=== PATIENT | female | born 1960 | race African-American/Black ===

== ENCOUNTER 2017-11-24 16:34 | Inpatient (IN) | payer OTHER ==
[~2017-11-24] VITALS: Ht 162.6 cm; Wt 92.1 kg
[2017-11-24 16:51] VITALS: BP 134/84
[2017-11-24] MEDS ORDERED: METFORMIN HCL500 MG PO (16:56)
[2017-11-24] MEDS ORDERED: FOLIC ACID1 MG PO (16:56)
[2017-11-24] MEDS ORDERED: PREDNISONE 10 M10 MG PO (16:56)
[2017-11-24 17:23] LABS: HEMATOCRIT 44.4 % (37.0-47.0); HEMOGLOBIN 13.7 gm/dL (12.0-15.0); MCH 27.5 pg (26.0-34.0); MCHC 30.9 g/dL (28.0-37.0); MCV 88.8 fL (80.0-100.0); MPV 9.4 fl. (7.2-11.1); NUCLEATED RBCS 0 /100WBC; PLATELET COUNT* 191 thou/uL (150-400); RDW-CV 15.9 % (10.5-14.5); WBC 11.6 thou/uL (4.0-11.0)
[2017-11-24 17:32] LABS: CALCIUM 10.2 mg/dL (8.5-10.1); POTASSIUM 3.6 mmol/L (3.5-5.1)
[2017-11-24 17:39] LABS: ALBUMIN 2.9 g/dL (3.4-5.0); TOTAL BILIRUBIN 1.8 mg/dL (<0.1-1.0); TOTAL PROTEIN 10.1 g/dL (6.4-8.2)
[2017-11-24 17:43] LABS: TROPONIN-I LEVEL 0.6 ng/mL (<0.06)
[2017-11-24 17:50] LABS: APTT 40.4 Seconds (25.0-31.3); INR 1.4; PROTIME 13.5 Seconds (9.20-11.50)
[2017-11-24 18:02] LABS: ABSOLUTE LYMPHOCYTES 0.7 thou/uL (0.8-5.3); ABSOLUTE MONOCYTES 0.8 thou/uL (0.0-1.2); ABSOLUTE NEUTROPHILS 10.1 thou/uL (1.6-8.1); PLATELET ESTIMATE ADEQUATE
[2017-11-24 18:10] LABS: INFLUENZA A ANTIGEN None Detected (None Detect); INFLUENZA B ANTIGEN None Detected (None Detect)
[2017-11-24 21:01] LABS: URINE BLOOD 2+ (Negative); URINE CLARITY CLEAR; URINE COLOR ORANGE; URINE GLUCOSE-RANDOM NEGATIVE (Negative); URINE KETONES 2+ (Negative); URINE LEUKOCYTES-REFLEX NEGATIVE (Negative); URINE PROTEIN 3+ (Negative); URINE SPECIFIC GRAVITY >= 1.030 (1.005-1.030)
[2017-11-24 21:04] LABS: URINE BILIRUBIN 2+ (Negative); URINE NITRITE-REFLEX POSITIVE (Negative)
[2017-11-24 21:05] LABS: ICTOTEST (BILI CONFIRMATORY) Negative (Negative)
[2017-11-24 21:10] VITALS: BP 129/82
[2017-11-24 21:12] LABS: BACTERIA-REFLEX >30 Many /HPF (None Seen); HYALINE CASTS >10 Many /LPF (None Seen); MUCUS 0-3 Light strn/LPF (None Seen)
[2017-11-24 21:13] LABS: URINE WBC-REFLEX 0-5 Rare /HPF (0-5)
[2017-11-24 21:14] LABS: SQUAMOUS 4-10 Moderate /LPF (0-3)
[2017-11-24 21:15] LABS: CRYSTALS None Seen /LPF (None Seen); URINE RBC 0-2 Rare /HPF (0-2)
[2017-11-24 21:24] VITALS: BP 108/73
[2017-11-25] VITALS: BP 124/78; BP 155/64
[2017-11-25 04:00] VITALS: BP 110/73
--- NOTE | 2017-11-25 06:22 | NUR ---
PATIENT REMAINS STABLE SINCE ADMISSION TO UNIT. PATIENT PARTIALLY PROGRESSING TOWARDS GOALS: PATIENT STATES HER PAIN IS NOW IN THE SIDES OF HER ABDOMEN RATHER THAN HER CHEST. PATIENT REMAINS ON 2L O2 NC, STILL SHORT OF BREATH WITH EXERTION BUT O2 SATS >92%. HOB ELEVATED. EMOTIONAL SUPPORT TEACHER TRACING SR/ST. PATIENT NPO FOR CARDIOLOGY. HOURLY ROUNDING OBSERVED. CALL LIGHT WITHIN REACH.
--- NOTE | 2017-11-25 08:20 | NUR ---
RECEIVED REPORT. ASSUMED CARE OF PT AT 0730. VSS. CARDIAC MONTIORING IN PLACE SR WITH ST ELEVATION NOTED SIMILAR TO EKG'S. PT DOES HAVE CARDIOLOGY CONSULT. PT CURRENTLY NPO. PT IS DROWSY/SLEEPING THIS AM. PT ON 2L PER NC WITH O2 SAT AT 98% PT DENIES ANY CHEST PAIN THIS AM. IV SALINE LOCKED. INFORMED PT OF PLAN OF CARE. PT IS UP WITH STAND BY ASSISTANCE TO BATHROOM. CALL LIGHT IS WITHIN REACH. WILL CONTINUE TO MONTIOR FOR DURAIOTN OF SHIFT.
[2017-11-25 08:31] VITALS: BP 117/74
[2017-11-25 11:31] VITALS: BP 132/86
--- NOTE | 2017-11-25 12:00 | NUR ---
MET WITH PT TO DISCUSS HOME SITUATION/DC PLANNING. PT LIVES ALONE, IS INDEPENDENT AND ACTIVE. SHE USES NO EQUIPMENT AND HASN'T HAD HH. PT STATES SHE WORKS 3 SEASONAL JOBS BUT IS UNINSURED. SHE FOLLOWS WITH DR PETER VEGA AND GETS HER MEDS AT [facility]. GAVE PT COMMUNITY RESOURCE INFO AND DISCOUNT DRUG CARD. PT PLANS TO RETURN HOME AT DC AND DENIES NEEDS. WILL FOLLOW
--- NOTE | 2017-11-25 14:59 | 2DMMODE ---
[place] [address] 2 D/M-MODE ECHOCARDIOGRAM Name: MEMO HARRISON Room: [address] IN [facility]#: [id number] Admission: 11/24/17 Attend Phys: Alonzo Cannon Discharge: Date of : 62 Date of Service: 11/25/17 1459 Report #: [id number] THIS REPORT FOR: //name// APPROVED REPORT Study performed: 11/25/2017 10:28:08 EXAM: Comprehensive 2D, Doppler, and color-flow Echocardiogram Patient Location: In-Patient Room #: [facility] Status: routine BSA: 1.97 HR: 85 bpm BP: 117/74 mmHg Rhythm: NSR Other Information Study Quality: Good Indications Dyspnea 2D Dimensions LVEF(%): 59.58 (>50%) IVSd: 15.15 (7-11mm) LVOT Diam: 23.80 (18-24mm) LVDd: 44.40 mm PWd: 12.35 (7-11mm) Ascending Ao: 30.90 (22-36mm) LVDs: 30.42 (25-40mm) Aortic Root: 32.56 mm Morales's LVEF: 59.58 % Volumes Left Atrial Volume (Systole) LA ESV Index: 37.40 mL/m2 Aortic Valve AoV Peak Jamal.: 1.19 m/s AO Peak Gr.: 5.62 mmHg LVOT Max P.75 mmHg AO Mean Gr.: 3.25 mmHg LVOT Mean P.81 mmHg LVOT Max V: 0.97 m/s AO V2 VTI: 22.77 cm LVOT Mean V: 0.61 m/s SLY (VTI): 3.77 cm2 LVOT V1 VTI: 19.30 cm Mitral Valve E/A Ratio: 1.45 [place] [address] 2 D/M-MODE ECHOCARDIOGRAM Name: MEMO HARRISON Room: [address] IN .R.#: [id number] Admission: 11/24/17 Attend Phys: Alonzo Cannon Discharge: Date of : 62 Date of Service: 11/25/17 1459 Report #: [id number] MV Decel. Time: 223.77 ms MV E Max Jamal.: 0.77 m/s MV PHT: 64.89 ms MVA (PHT): 3.39 cm2 TDI E/Lateral E': 11.00 E/Medial E': 11.00 Medial E' Jamal.: 0.07 m/s Lateral E' Jamal.: 0.07 m/s Pulmonary Valve PV Peak Jamal.: 0.86 m/s PV Peak Gr.: 2.97 mmHg Tricuspid Valve TR Peak Gr.: 18.83 mmHg RVSP: 23.00 mmHg Left Ventricle The left ventricle is normal size. There is normal LV segmental wall motion. Mild concentric left ventricular hypertrophy. Left ventricular systolic function is normal. LVEF is 55-60%. Transmitral Doppler flow pattern suggests impaired LV relaxation. Right Ventricle The right ventricle is normal size. The right ventricular systolic function is normal. Atria Left atrium is mildly dilated. The right atrium size is normal. Aortic Valve The aortic valve is normal in structure. No aortic regurgitation is present. There is no aortic valvular stenosis. Mitral Valve The mitral valve is normal in structure. Trace mitral regurgitation. No evidence of mitral valve stenosis. Tricuspid Valve The tricuspid valve is normal in structure. Trace tricuspid regurgitation. The RVSP is ____23___ mmHg. Pulmonic Valve The pulmonary valve is normal in structure. [place] [address] 2 D/M-MODE ECHOCARDIOGRAM Name: MEMO HARRISON Gómez Room: [address] IN [facility]#: [id number] Admission: 11/24/17 Attend Phys: Alonzo Cannon Discharge: Date of : 62 Date of Service: 11/25/17 1459 Report #: [id number] Great Vessels The aortic root is normal in size. IVC is normal in size and collapses with >50% inspiration Pericardium There is no pericardial effusion. <Conclusion> The left ventricle is normal size. Mild concentric left ventricular hypertrophy. Left ventricular systolic function is normal. LVEF is 55-60%. Transmitral Doppler flow pattern suggests impaired LV relaxation. Left atrium is mildly dilated. Trace mitral regurgitation. Trace tricuspid regurgitation. The RVSP is ____23___ mmHg. There is no pericardial effusion. <ELECTRONICALLY SIGNED> By: Rm Rouse MD, FACC 11/25/17 1459 1459 1459 Rm Rouse MD, FACC /INF
[2017-11-25 15:43] VITALS: BP 123/81
--- NOTE | 2017-11-25 16:36 | EKG ---
[place] [address] ELECTROCARDIOGRAM REPORT Name: MEMO HARRISON Room: [address] ADM IN M.R.#: [id number] Admission: 11/24/17 Attend Phys: Gertrudis Xie Discharge: Date of : 62 Report #: [id number] THIS REPORT FOR: //name// [facility] ED Test Date: 2017-11-24 Test Time: 17:17:04 Pat Name: MEMO HARRISON Department: Room: [facility] Gender: F Fuel Cell Designer: CODY : 1960 Requested By: Chloe Villarreal Order Number: [id number] MD: Jason Baron Measurements Intervals [place] Rate: 114 P: -16 [place]: 134 QRS: -34 QRSD: 80 T: 34 QT: 303 QTc: 418 Interpretive Statements Sinus tachycardia Abnormal R-wave progression, late transition Left ventricular hypertrophy left anterior fasicular block Anterior ST elevation, probably due to LVH Lateral leads are also involved No previous ECG available for comparison Electronically Signed On 11-25-2017 16:36:42 CREATIVE ASSISTANT by Jason Baron [email or web address] <ELECTRONICALLY SIGNED> By: Jason Baron MD, FAC 11/25/17 1636 1717 1717 Jason Baron MD, [facility] /EPI
--- NOTE | 2017-11-25 16:41 | EKG ---
[place] [address] ELECTROCARDIOGRAM REPORT Name: MEMO HARRISON Room: [address] ADM IN .R.#: [id number] Admission: 11/24/17 Attend Phys: Gertrudis Xie Discharge: Date of : 62 Report #: [id number] THIS REPORT FOR: //name// [facility] ED Test Date: 2017-11-24 Test Time: 19:17:14 Pat Name: MEMO HARRISON Department: Room: [facility] Gender: F Reinsurance Claims Analyst: ERIC : 1960 Requested By: Chloe Villarreal Order Number: [id number] MD: Jason Baron Measurements Intervals [place] Rate: 106 P: 49 [place]: 130 QRS: -36 QRSD: 87 T: 24 QT: 327 QTc: 435 Interpretive Statements Sinus tachycardia Left ventricular hypertrophy left axis deviation diffuse st elevation, consider pericarditis Baseline wander in lead(s) V1,V3,V4,V5 Electronically Signed On 11-25-2017 16:41:21 YARDING AND FOLDING MACHINE OPERATOR by Jason Baron [email or web address] <ELECTRONICALLY SIGNED> By: Jason Baron MD, [facility] 11/25/17 1641 16 16 Jason Baron MD, [facility] /EPI
--- NOTE | 2017-11-25 17:24 | NUR ---
VSS. CARDIAC MOTNIORING IN PLACE WITH NO CHANGES. PT PROGRESSING TOWARDS GOALS. PT REMAINS ON 2L. IV SALINE LOCKED. PT HAS HAD NO COMPLAINTS OF PAIN OR DISCOMFORT THIS SHIFT. PT IS UP WITH ASSISTANCE TO BATHROOM. PT INFORMED OF PLAN OF CARE. PT COMMUNICATES UNDERSTANDING CALL LIGHT IS WITHI NREACH. WILL CONTINUE TO MOTNIOR FOR DURAITON OF SHFIT.
[2017-11-25 20:00] VITALS: BP 114/74
[2017-11-26] VITALS (7 sets, daily range): BP systolic 99–121; BP diastolic 41–73
[2017-11-26 05:26] LABS: HEMATOCRIT 33.4 % (37.0-47.0); MCH 28.2 pg (26.0-34.0); MCHC 33.1 g/dL (28.0-37.0); MPV 9.4 fl. (7.2-11.1); RBC 3.93 mil/uL (4.20-5.00); RDW-CV 15.4 % (10.5-14.5); WBC 7.8 thou/uL (4.0-11.0)
[2017-11-26 05:50] LABS: CALCIUM 9.3 mg/dL (8.5-10.1); CREATININE 0.8 mg/dL (0.6-1.3); MAGNESIUM 2.2 mg/dL (1.8-2.4); POTASSIUM 3.7 mmol/L (3.5-5.1); TROPONIN-I LEVEL 0.08 ng/mL (<0.06)
[2017-11-26 05:53] LABS: HEMOGLOBIN 11.1 gm/dL (12.0-15.0)
--- NOTE | 2017-11-26 07:46 | NUR ---
PT A/OX4, SR, 2L NC FOR SOA, UP SBA, FREE FROM PAIN OVER NIGHT, MEDS/ASSESSMENT PER CHARTING, HOURLY ROUNDING IN PLACE, FALL PRECAUTIONS IN PLACE, PT USES CALL LIGHT TO REPORT NEEDS, VSS, WILL CONT TO MONITOR.
--- NOTE | 2017-11-26 19:50 | NUR ---
BEDSIDE REPORT GIVEN TO ASSISTANT ANALYST FOR CONTINUED CARES. PT REMAINS STABLE, VSS, PT CHOOSE FOR COMFORT TO WEAR NC 2L O2, STATS AT 100%. ASSESSMENTS AND DOCUMENTATION COMPLETED. HOURLY ROUNDING AND ACCU CHECKS COMPLETED. CHEST XR UNCHANGED WITH LEFT LL INFILTRATES AND ATELECTASIS. UPPER LOBES CLEAR. PT IN BEDSIDE CHAIR WATCHING TV AT SHIFT CHANGE. ALERT, TALKATIVE, PLEASANT AND COOPERATIVE.
--- NOTE | 2017-11-26 20:13 | NUR ---
ASSUMED CARES WITH BEDSIDE REPORT AT 0700. PT IN BED, BED IN LOW AND LOCKED POSITION, FALL PRECAUTIONS IN PLACE. CALL BUTTON AND PERSONAL ITEMS IN PT REACH. PT UP SBA. WIRE ROLLER TRACING NSR, PT WEARING 2L O2 NC FOR COMFORT/PRN, STATS WNL. LUNGS DISTANT WHEEZING LL BILATERALLY. NO EDEMA, SKIN INTACT, PT REFUSES SCD'S THIS SHIFT. PERRL, AFEBRILE, VSS, PT DENIES PAIN. LEFT 20 GAUGE AC PATENT, NO S/S OF INFECTION. CARDIOLOGY SIGNED OFF. ABD SOFT, NON TENDER TO PALPATION. PT A&O X4, COOPERATIVE, PLEASANT, TAKES MEDS WELL PO. REPORT TO GLUING MACHINE FEEDER FOR CONTINUED CARES. PULSES PEDIAL AND RADIAL WNL. PT PROGRESSING TOWARDS GOAL.
[2017-11-27] VITALS: BP 124/80
[2017-11-27 02:12] LABS: COMPLEMENT-C4 41 mg/dL (14-44)
--- NOTE | 2017-11-27 03:10 | NUR ---
NO ACUTE CHANGES WITH PT OVER NIGHT, PT REMAINS A/OX4, SR, 2L NC WITH STATS IN HIGH 90'S-100%, PT DOES NOT WANT TO REMOVE 02 STATING WHEN SHE GETS SOA FROM COUGHING IT MAKES HER FEEL BETTER TO HAVE IT ON, MEDS/ASSESSMENT PER CHARTING, NO C/O PAIN DURING THIS SHIFT THUS FAR, HOURLY ROUNDING/FALL PRECAUTIONS IN PLACE, VSS, WILL CONT TO MONITOR.
[2017-11-27 04:00] VITALS: BP 138/84
[2017-11-27 05:38] LABS: ABSOLUTE LYMPHOCYTES 1.1 thou/uL (0.8-5.3); ABSOLUTE MONOCYTES 0.2 thou/uL (0.0-1.2); ABSOLUTE NEUTROPHILS 2.9 thou/uL (1.6-8.1); BASOPHILS 0.2 %; HEMATOCRIT 32.6 % (37.0-47.0); HEMOGLOBIN 10.7 gm/dL (12.0-15.0); LYMPHOCYTES 27.3 %; MCH 27.4 pg (26.0-34.0); MCHC 32.7 g/dL (28.0-37.0); MCV 83.8 fL (80.0-100.0); NUCLEATED RBCS 0 /100WBC; PLATELET COUNT* 204 thou/uL (150-400); POLYS 68.5 %; RBC 3.89 mil/uL (4.20-5.00); RDW-CV 15.8 % (10.5-14.5); WBC 4.2 thou/uL (4.0-11.0)
[2017-11-27 05:45] LABS: ALBUMIN 2.2 g/dL (3.4-5.0); CALCIUM 9.7 mg/dL (8.5-10.1); CREATININE 0.7 mg/dL (0.6-1.3); TOTAL BILIRUBIN 0.2 mg/dL (<0.1-1.0); TOTAL PROTEIN 8.2 g/dL (6.4-8.2)
[2017-11-27 09:26] VITALS: BP 125/70
[2017-11-27 11:51] VITALS: BP 120/72
[2017-11-27 15:52] VITALS: BP 122/68
--- NOTE | 2017-11-27 18:30 | NUR ---
ASSUMED CARES AT BEDSIDE REPORT AT 0700. PT IN BED, BED IN LOW AND LOCKED, PT UP INDEPENDENT. CALL BUTTON AND PERSONAL ITEMS IN PT REACH. PT A&O X4, SCALE OPERATOR TRACING NSR, VSS ON RA, AFEBRILE, SKIN INTACT, NO EDEMA NOTED, NON PRODUCTIVE COUGH, SOA ON EXERTION. LEFT AC PATENT TO FLUSH AND IV ABT. IV ABT'S TOLERATED, NO AVR. HOURLY ROUNDING AND ACCU CHECKS COMPLETED. PT DENIES PAIN THIS SHIFT. CARDIOLOGY SIGNED OFF. PT MAY DISCHARGE TOMORROW TO HOME. PT STABLE, TALKATIVE, SMILING, COOPERATIVE. PT PROGRESSING TOWARDS GOAL.
[2017-11-27 20:00] VITALS: BP 134/86
--- NOTE | 2017-11-27 20:28 | NUR ---
BEDSIDE REPORT TO POTABLE WATER TREATMENT OPERATOR FOR CONTINUED CARES. PT REMAINS STABLE. VSS ON RA. PT PROGRESSING TOWARDS GOAL. HOURLY ROUNDING AND ACCU CHECKS COMPLETED. PT PRESENTLY IN BEDSIDE CHAIR WATCHING TV.
[2017-11-28] VITALS: BP 124/78
[2017-11-28 04:09] VITALS: BP 150/69
--- NOTE | 2017-11-28 05:36 | NUR ---
PT A/OX4, SR, RA WITH O2 PRN, UP AD MARY, PT REPROTED FLOATY'S IN HER VISION WHICH IMPROVED OVER NIGHT, FAXED ORDER TO PHARMACY FOR EYE WASH/TEARS, MEDS/ASESSMENT PER CHARTING, PAIN TREATED X1 FOR ACHING TO THE LEFT RIB/CHEST AREA WITH DEEP BREATHING, HOURLY ROUNDING/FALL PRECAUTIONS IN PLACE, PT USES CALL LIGHT AND ABLE TO VOICE HER NEEDS, IV D/C'ED TO [facility], HOUSE SUP PLACED NEW IV TO LFA AFTER THREE OTHER NURSES ATTEMPTED IV, VSS, WILL CONT TO MONITOR.
[2017-11-28 08:30] VITALS: BP 128/72
--- NOTE | 2017-11-28 09:00 | NUR ---
PT SITTING AT SIDE OF BED UPON ENTERING ROOM TO ASSESS VITALS AT 0830. PT DID NOT APPEAR IN DISTRESS, HOWEVER STATES SHE HAS BEEN HAVING CHEST PRESSURE AND POINTS TO AREA ON L SIDE OF CHEST. STATES PRESSURE IS 5/10 PER NUMERIC SCALE. STAT EKG OBTAINED. CONTACTED PHYSICIAN AND DIRECTOR OF CORPORATE REAL ESTATE/PHYSICIAN. EKG SHOWS NO NEW CHANGES. PHYSICIANS STATE SOURCE OF PRESSURE IS LIKELY PERICARDITIS. RECS ARE TO PROVIDE PRN PAIN MED SUCH IBUPROFEN. PRN MED GIVEN TO PT. PT CONTINUES TO APPEAR COMFORTABLE BUT STATES SHE STILL FEELS PRESSURE BUT DESCRIBES IT MORE AROUND HER SIDE THORAX BILAT. AGREEABLE TO TAKE ACETAMINEPHEN. NEEDED ITEMS AND CALL LIGHT WITHIN REACH.
--- NOTE | 2017-11-28 10:27 | EKG ---
[place] [address] ELECTROCARDIOGRAM REPORT Name: MEMO HARRISON Room: [address] ADM IN M.R.#: [id number] Admission: 11/24/17 Attend Phys: Gertrudis Xie Discharge: Date of : 62 Report #: [id number] THIS REPORT FOR: //name// [facility] Test Date: 2017-11-28 Test Time: 08:42:18 Pat Name: MEMO HARRISON Department: Room: [address] Gender: F Picker Tender Helper: Gertrudis NAVARRO : 1960 Requested By: Rm Rouse Order Number: [id number] MD: Jason Baron Measurements Intervals [place] Rate: 66 P: 41 [place]: 156 QRS: -26 QRSD: 96 T: 17 QT: 415 QTc: 435 Interpretive Statements Sinus rhythm Probable left atrial enlargement Left ventricular hypertrophy st elevation, consider pericarditie Compared to ECG 11/24/2017 19:17:14 Sinus tachycardia no longer present Electronically Signed On 11-28-2017 10:27:45 AUTOMATIC SILK SCREEN PRINTER by Jason Baron [email or web address] <ELECTRONICALLY SIGNED> By: Jason Baron MD, FAC 11/28/17 1027 0842 0842 Jason Baron MD, [facility] /EPI
[2017-11-28 12:24] VITALS: BP 124/84
[2017-11-28] MEDS ORDERED: PROTONIX40 M1 PO (15:18)
[2017-11-28] MEDS ORDERED: LEVAQUIN 500 M500 M3 PO (15:23)
[2017-11-28 15:54] VITALS: BP 117/75
[2017-11-28] MEDS ORDERED: OXYCODONE HCL 55 MG PO (16:22)
[2017-11-28] MEDS ORDERED: COLCHICINE0.6 MG PO (16:25)
[2017-11-28] MEDS ORDERED: IBUPROFEN 600600 M1 PO (16:26)
[2017-11-28 17:31] VITALS: BP 121/70
--- NOTE | 2017-11-28 17:45 | NUR ---
PT HAS COMPLETE DC ORDER. CASINO CAGE MANAGER CONTACTED, STATES PT MAY BE DC'D IF TROP LAB IS WNL. BOTH MORNING AND AFTERNOON LABS ARE WNL. DC INSTRUCTIONS AND MED LIST REVIEWED WITH PT. SCRIPTS AND EDUCATION REVIEWED. ANSWERED QUESTIONS TO PT SATISFACTION. MONITOR AND IV DC'D. PT IN POSSESSION OF ALL BELONGINGS. PT LEFT UNIT VIA WC AND NURSING STAFF. PT'S FATHER TO TRANSPORT PT TO HER HOME VIA CAR.
--- NOTE | 2017-12-01 08:34 | CON ---
[facility] [address] [place] [address] CONSULTATION Name: MEMO HARRISON Room: [address] IN M.R.#: [id number] Admission: 11/24/17 Attend Phys: Gertrudis Xie Discharge: 11/28/17 Date of : 62 Report #: [id number] THIS REPORT FOR: //name// CC: Dr. Savannah Cannon INDICATION: Chest pain and elevated troponin. HISTORY OF PRESENT ILLNESS: The patient is a 57-year-old -[place] female with history of polymyositis and lupus. She presented to the hospital with chest pain, worse with inspiration. She is not having any exacerbation with activity. She has some mild nausea, but no vomiting. She has been on steroids for her lupus since mid October. She missed her last 2 days' worth of doses due to nausea. She is not having any significant shortness of breath. She denies orthopnea or paroxysmal nocturnal dyspnea. She denies palpitations. She is without other cardiac complaint. EKG shows diffuse ST elevation with DE segment depression consistent with acute pericarditis. Her initial troponin was 0.72 suggesting possible myopericarditis . Echocardiogram has been ordered and is pending. PAST MEDICAL HISTORY: 1. Polymyositis 2. Lupus. 3. Type 2 diabetes mellitus. PAST SURGICAL HISTORY: 1. FELICE-BSO. 2. Muscle biopsy. 3. Left carpal tunnel release. FAMILY HISTORY: Noncontributory. SOCIAL HISTORY: The patient is single. She does not smoke. She does not drink alcohol. HOME MEDICATIONS: Folate 1 mg daily, metformin 500 mg daily, and prednisone 10 mg daily. ALLERGIES: STRAWBERRIES. No known medical allergies. REVIEW OF SYSTEMS: A 14-point review of systems is positive for cough, productive of clear sputum, chest discomfort as outlined above, occasional edema of lower extremities, type 2 diabetes mellitus, anemia, strawberry allergy, arthritis and connective tissue disease as outlined above, glasses without acute visual loss. Otherwise, 14-point review of systems [place] [address] CONSULTATION Name: MEMO HARRISON Room: [address]#: [id number] Admission: 11/24/17 Attend Phys: Gertrudis Xie Discharge: 11/28/17 Date of : 62 Report #: [id number] PHYSICAL EXAMINATION: VITAL SIGNS: Stable. Blood pressure 117/74, pulse 83 and regular. GENERAL: This is a pleasant -[place] female who appears to be in no distress. Mood and affect appropriate. HEENT: Normocephalic, atraumatic. Extraocular muscles are intact. Mucous membranes are moist. NECK: Shows no jugular venous distention. CHEST: Reveals clear lung sanchez without wheezes or rales. CARDIAC: Reveals a regular rhythm. I do not appreciate gallop, rub, or murmur. ABDOMEN: Reveals normal bowel sounds. The abdomen is soft and nontender. EXTREMITIES: Shows no edema. Peripheral pulses 2+ and palpable. SKIN: Dry. A 12-lead EKG shows sinus rhythm with ST elevation diffusely. There is DE interval depression. LABS: Reviewed. Sodium 134, potassium 3.6, chloride 97, bicarb 22, BUN , creatinine 1.0, serum glucose 196. Calcium 10.2. Total bili 1.8, alkaline phosphatase 70, ALT 16, albumin 2.9. Total protein 10.1. Troponin 0.60 and now 0.72. NT-proBNP 5119. Protime 13.5, INR 1.4, APTT 40.4. White blood cell count 11.6, hemoglobin 13.7, hematocrit 44.4, and platelet count 191,000. Sed rate greater than 140, C-reactive protein 456. Urinalysis shows 3+ protein. IMPRESSION AND RECOMMENDATIONS: 1. Acute myopericarditis. We will obtain echocardiogram. Follow serial troponins to evaluate peak. Initiate treatment with colchicine and nonsteroidal anti-inflammatory agents. 2. Elevated troponin secondary to #1. 3. Lupus with evidence of lupus nephritis. The patient had been on steroids at home. Res[place] [address] CONSULTATION Name: MEMO HARRISON Room: [address] IN M.R.#: [id number] Admission: 11/24/17 Attend Phys: Gertrudis Xie Discharge: 11/28/17 Date of : 62 Report #: [id number] 4. Polymyositis, the patient does follow with outside rheumatology. 5. Type 2 diabetes mellitus, per primary service. <ELECTRONICALLY SIGNED> By: Rm Rouse MD, FACC 12/01/17 0834 1018 1048[facility] Valorie Rouse MD, FACC /nt
== END 2017-11-28 19:11 | disposition home or self-care (01) | DRG 871 ==
LOC: M.ERS 16:34 → M.2W 19:04 → M.TBA-ER 19:04 → M.2W 20:11
PROVIDERS: Internal Medicine; Nurse Practitioner Family; ADMIT Internal Medicine
DX: A41.9 Sepsis, unspecified organism (principal); J18.9 Pneumonia, unspecified organism; N39.0 Urinary tract infection, site not specified; M33.20 Polymyositis, organ involvement unspecified; I30.9 Acute pericarditis, unspecified; J98.11 Atelectasis; M33.90 Dermatopolymyositis, unspecified, organ involvement unspecified; I31.9 Disease of pericardium, unspecified; E11.9 Type 2 diabetes mellitus without complications; I50.9 Heart failure, unspecified; M32.14 Glomerular disease in systemic lupus erythematosus; F41.9 Anxiety disorder, unspecified; I11.0 Hypertensive heart disease with heart failure; Z90.710 Acquired absence of both cervix and uterus; Z90.722 Acquired absence of ovaries, bilateral; Z79.84 Long term (current) use of oral hypoglycemic drugs; Z79.899 Other long term (current) drug therapy; Z91.018 Allergy to other foods; Z28.21 Immunization not carried out because of patient refusal

== ENCOUNTER → 2020-04-06 | Outpatient (CLI) | payer OTHER ==
[~2020-04-06] MED LIST: COLCHICINE0.6 MG PO; FOLIC ACID1 MG PO; HYDROCODONE-AP1 EAC6 PO; IBUPROFEN 600600 M1 PO; LEVAQUIN 500 M500 M3 PO; MEDROLDOSEPACK PO; METFORMIN HCL500 MG PO; METHOTREXATE 22.5 MG PO; MOTION SICKNESS25 M1 PO; OXYCODONE HCL 55 MG PO; PREDNISONE 10 M10 MG PO; PROTONIX40 M1 PO
== END ==
LOC: M.RAD 10:42
DX: M25.871 Other specified joint disorders, right ankle and foot (principal)

== ENCOUNTER 2020-09-25 15:31 | Emergency (ER) | payer OTHER ==
[~2020-09-25] VITALS: Ht 160 cm; Wt 77.1 kg
[2020-09-25 16:21] LABS: URINE BLOOD NEGATIVE (Negative); URINE CLARITY CLEAR; URINE COLOR DARK YELLOW; URINE GLUCOSE-RANDOM TRACE (Negative); URINE KETONES 2+ (Negative); URINE LEUKOCYTES-REFLEX TRACE (Negative); URINE NITRITE-REFLEX NEGATIVE (Negative); URINE PROTEIN 2+ (Negative); URINE UROBILINOGEN >= 8.0 E.U./dl (0.2-1.0)
[2020-09-25 16:26] LABS: URINE BILIRUBIN 2+ (Negative)
[2020-09-25 16:28] LABS: ICTOTEST (BILI CONFIRMATORY) Positive (Negative)
[2020-09-25 16:30] LABS: BACTERIA-REFLEX >30 Many /HPF (None Seen); HYALINE CASTS 4-10 Moderate /LPF (None Seen); MUCUS >6 Heavy strn/LPF (None Seen); SQUAMOUS 4-10 Moderate /LPF (0-3); URINE RBC 0-2 Rare /HPF (0-2)
[2020-09-25 16:31] LABS: CRYSTALS None Seen /LPF (None Seen)
[2020-09-25 16:33] LABS: ABSOLUTE EOSINOPHILS 0.3 thou/uL (0.0-0.7); ABSOLUTE LYMPHOCYTES 0.8 thou/uL (0.8-5.3); ABSOLUTE MONOCYTES 0.5 thou/uL (0.0-1.2); BASOPHILS 0.3 %; EOSINOPHILS 4.8 %; HEMATOCRIT 39.2 % (37.0-47.0); LYMPHOCYTES 12.6 %; MCH 27.6 pg (26.0-34.0); MCHC 33.1 g/dL (28.0-37.0); MCV 83.3 fL (80.0-100.0); MONOCYTES 7.8 %; MPV 8.8 fl. (7.2-11.1); NUCLEATED RBCS 0 /100WBC; PLATELET COUNT* 235 thou/uL (150-400); POLYS 74.5 %; RBC 4.71 mil/uL (4.20-5.00); RDW-CV 13.1 % (10.5-14.5); WBC 6.7 thou/uL (4.0-11.0)
[2020-09-25 16:38] LABS: CALCIUM 9.7 mg/dL (8.5-10.1); CREATININE 0.8 mg/dL (0.6-1.3); POTASSIUM 3.4 mmol/L (3.5-5.1)
[2020-09-25 16:43] LABS: ALBUMIN 2.8 g/dL (3.4-5.0); TOTAL BILIRUBIN 0.7 mg/dL (<0.1-1.0); TOTAL PROTEIN 9.6 g/dL (6.4-8.2)
[2020-09-25] MEDS ORDERED: KEFLEX500 M1 PO (17:07)
[2020-09-25] MEDS ORDERED: METFORMIN HCL500 MG PO (17:15)
[2020-09-25 17:24] VITALS: BP 113/95
[2020-09-25] MEDS ORDERED: APAP W/CODEINE1 TA2 PO (17:45)
== END 2020-09-25 17:25 | disposition home or self-care (01) ==
LOC: M.ERS 15:31
PROVIDERS: Physician Assistant
DX: R20.0 Anesthesia of skin (principal); R20.2 Paresthesia of skin; N39.0 Urinary tract infection, site not specified; I10 Essential (primary) hypertension; E11.9 Type 2 diabetes mellitus without complications; Z90.711 Acquired absence of uterus with remaining cervical stump; Z79.899 Other long term (current) drug therapy

== ENCOUNTER 2020-10-01 20:25 | Inpatient (IN) | payer MEDICAID ==
[~2020-10-01] VITALS: Ht 160 cm; Wt 87.3 kg
--- NOTE | ~2020-10-01 | CON ---
[facility] [address] [place] [address] CONSULTATION Name: MEMO HARRISON Room: [address] IN M.R.#: [id number] Admission: 10/01/20 Attend Phys: Grazyna Brown MD Discharge: Date of : 62 Report #: [id number] THIS REPORT FOR: //name// cc: Andria Pena MD, Lin W. MD ~ DATE OF SERVICE: 10/02/2020 HISTORY OF PRESENT ILLNESS: This is a 60-year-old female patient who was evaluated by me for a pretty complicated history. I talked to the patient. I reviewed the patient's record and subsequently called Dr. Fu who is the admitting physician to discuss the patient with him. This patient is admitted with generalized weakness. Weakness involves upper and lower extremities. It started about 9 or 10 days ago around last weekend. It started spontaneously without any trauma. Complicated history is that this patient has what has been diagnosed as either polymyositis or dermatomyositis. She has been to a bowl attendant and she has been on immune suppressing medications. I do not know what testing was done to establish the diagnosis of polymyositis or dermatomyositis. I do not know whether a muscle biopsy was done or whether EMG was done of whether it was a clinical diagnosis. In any event, it is a chronic process and presently her CPK is normal. REVIEW OF SYSTEMS: A 14-point review of system is carried out and it is pretty extensive. She carries a diagnosis of either polymyositis or dermatomyositis. Records indicate she has a history of congestive heart failure. Now, she has this tingling and numbness and weakness in all 4 extremities, which is about 9-10 days' duration. During that time multiple diagnoses has been put on her. Some of them has been confirm and some of them have been tentative. The diagnosis of urinary tract infection has been considered in this patient and that diagnosis, looks like was made outside. She did have a urinalysis here and that showed only rare WBC and her nitrite is negative, I am not sure how established the diagnosis of urinary tract infection while, but she does have influenza. That is per record. Her swab is positive for influenza type B. One of the records says that she has an abnormal EKG. Here it indicate probable left atrial enlargement and nonspecific ST segment changes according to the record. She has been admitted here and in 2018, she had a 2-D echocardiogram and that indicated a normal ejection fraction. She was admitted again in 2019 here and that was related to some knee issues. It might be mentioned that her CPK was checked in 2018, also when she was here and that indicated a CPK of 172. Even that was normal. This was a relevant 14-point review of system. PAST MEDICAL HISTORY: She carries a diagnosis [place] [address] CONSULTATION Name: MEMO HARRISON Room: [address] IN ..#: [id number] Admission: 10/01/20 Attend Phys: Grazyna Brown MD Discharge: Date of : 62 Report #: [id number] FAMILY HISTORY: Unremarkable. SOCIAL HISTORY: The patient was with her father when the patient was seen and according to records, she does not smoke or drink alcohol. PHYSICAL EXAMINATION: Indicate that she is alert. She is responsive. She can follow simple commands. Her speech looks intact. On the cranial nerve examination, sometime it looks like she may have left-sided ptosis, but it is difficult to confirm. She moves her eyes in all directions and she does not appear to have any visual field deficit and cranial nerve examination mostly looks unremarkable. She is severely weak in all 4 extremities. The weakness appeared to be symmetrical and present in all 4 extremities. She can move against gravity, most of the time, but movements are very weak. Her position sense is intact on both sides. Her touch is intact on both sides. Her plantars are mute on both sides. Reflexes in the upper extremities I think is present in the lower extremities I am not sure. When I do the cerebellar sign, she does appear to be little unstable, but it is difficult to tell whether that instability is there because of weakness or because of something else. There is no meningeal sign. There does not appear to be any marked edema. She is thinly built individual. Her hearing and vision looks adequate. Her blood pressure is 117/72, respiration is 16, pulse is 61, and temperature is 94.5. LABORATORY DATA: Indicate that her sed rate is still 94. This is in spite of the fact that the patient has been on steroids. Her potassium is only 3.2. She does have increased blood sugar, but ALT, CPK they were all normal. She did have a B12, which was normal. I did not see a TSH. She does have low albumin at 1.8, but her total protein is 8, which is normal and at one time was 9.5 and 9.6. I do not see any protein electrophoresis here. IMPRESSION: This is a highly complicated case. This is not a proper hospital for her because we do not have any bowl attendant here. That portion was discussed with the patient by Dr. Fu and I reinforced the same thing. As I understand, she wanted to stay here and the patient has no insurance and most of the Hospitals are full and it will be difficult to transfer because she wants to go to mainly [facility], which is usually full with the COVID. It will be almost impossible to transfer it, but I think Dr. Fu is going to try that. If she stays here, we need to workup. We will do a protein electrophoresis and immunofixation electrophoresis to see if any monoclonal body can be identified and see what the pattern is. The whole thing points towards the collagen vascular disorder with the patient having a high sed rate, and high CRP. The other differential, we need to consider is the possibility of Guillain-Tracy syndrome. We need to evaluate that further. In [place] [address] CONSULTATION Name: MEMO HARRISON Room: [address] IN .R.#: [id number] Admission: 10/01/20 Attend Phys: Grazyna Brown MD Discharge: Date of : 62 Report #: [id number] approved by cook chief before it can be done. I do not believe it will be approved in her case because of these kind of symptoms. Dr. Fu is going to try that. If MRI cannot be done, then I will order a CT scan today and we will proceed with a spinal tap if there is no contraindication for doing a spinal tap on CT. 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 The problem with the treatment is gammaglobulin is already high, you hate to give her gammaglobulin because it will increase the osmolality and increased the chances of having a stroke. We may have to consider plasmapheresis. The other thing which can be done is an EMG, but EMG will not distinguish between neuropathy of any other etiology for Guillain-Tracy syndrome until we find a demyelinating lesion. We do not have a machine here for EMG. It is a very difficult situation and it was discussed with Dr. Fu and the patient in detail. Presently, I will wait for protein electrophoresis, CT scan and then try to do a spinal tap in this patient after discussing the situation again with her tomorrow. Thank you very much for this referral. By: [id number] Larsen MD /nt
[~2020-10-01 20:25] MED LIST changes: +APAP W/CODEINE1 TA2 PO; +KEFLEX500 M1 PO
[2020-10-01 20:27] VITALS: BP 134/75
[2020-10-01] MEDS ORDERED: FOLIC ACID1 MG PO (20:45)
[2020-10-01 21:00] LABS: INFLUENZA A ANTIGEN Negative (Negative)
[2020-10-01 21:03] LABS: URINE BLOOD NEGATIVE (Negative); URINE CLARITY CLEAR; URINE COLOR YELLOW; URINE GLUCOSE-RANDOM NEGATIVE (Negative); URINE KETONES NEGATIVE (Negative); URINE LEUKOCYTES-REFLEX NEGATIVE (Negative); URINE NITRITE-REFLEX NEGATIVE (Negative); URINE PROTEIN 2+ (Negative); URINE SPECIFIC GRAVITY 1.025 (1.005-1.030)
[2020-10-01 21:07] LABS: ICTOTEST (BILI CONFIRMATORY) Negative (Negative); URINE BILIRUBIN 1+ (Negative)
[2020-10-01 21:08] LABS: SQUAMOUS 4-10 Moderate /LPF (0-3)
[2020-10-01 21:09] LABS: URINE WBC-REFLEX 0-5 Rare /HPF (0-5)
[2020-10-01 21:10] LABS: BACTERIA-REFLEX None Seen /HPF (None Seen); CASTS None Seen /LPF (None Seen); CRYSTALS None Seen /LPF (None Seen); MUCUS >6 Heavy strn/LPF (None Seen); URINE RBC None Seen /HPF (0-2)
[2020-10-01 21:12] LABS: HEMATOCRIT 40.1 % (37.0-47.0); HEMOGLOBIN 13.2 gm/dL (12.0-15.0); MCV 84.9 fL (80.0-100.0); MPV 8.6 fl. (7.2-11.1); NUCLEATED RBCS 0 /100WBC; PLATELET COUNT* 311 thou/uL (150-400); RBC 4.73 mil/uL (4.20-5.00); RDW-CV 13.4 % (10.5-14.5); WBC 9.9 thou/uL (4.0-11.0)
[2020-10-01 21:22] LABS: CALCIUM 9.5 mg/dL (8.5-10.1); CREATININE 0.9 mg/dL (0.6-1.3); POTASSIUM 3.6 mmol/L (3.5-5.1)
[2020-10-01 21:26] LABS: ABSOLUTE EOSINOPHILS 0.2 thou/uL (0.0-0.7); ABSOLUTE LYMPHOCYTES 0.4 thou/uL (0.8-5.3); ABSOLUTE MONOCYTES 0.5 thou/uL (0.0-1.2); ABSOLUTE NEUTROPHILS 8.8 thou/uL (1.6-8.1); PLATELET ESTIMATE ADEQUATE
[2020-10-01 21:32] LABS: ALBUMIN 2.3 g/dL (3.4-5.0); MAGNESIUM 2.3 mg/dL (1.8-2.4); TOTAL PROTEIN 9.5 g/dL (6.4-8.2)
[2020-10-01 21:41] LABS: INR 1.2; PROTIME 13.1 Seconds (9.20-11.50)
[2020-10-01 23:25] VITALS: BP 107/58
[2020-10-02 00:16] VITALS: BP 103/66
[2020-10-02] MEDS ORDERED: NEURONTIN 300M300 M2 PO (00:41)
[2020-10-02 05:43] VITALS: BP 103/63
[2020-10-02 08:00] VITALS: BP 117/72
--- NOTE | 2020-10-02 09:03 | EKG ---
[place] [address] ELECTROCARDIOGRAM REPORT Name: MEMO HARRISON Room: [address] ADM IN .R.#: [id number] Admission: 10/01/20 Attend Phys: Grazyna Brown, Discharge: Date of : 62 Date of Service: 10/01/202032 Report #: [id number] THIS REPORT FOR: //name// [facility] ED Test Date: 2020-10-01 Test Time: 20:33:46 Pat Name: MEMO HARRISON Department: Room: [facility] Gender: F Implementation Consultant: [place] : 1960 Requested By: Negra Tyson Order Number: [id number] MD: Jason Baron Measurements Intervals [place] Rate: 136 P: 50 [place]: 137 QRS: -48 QRSD: 89 T: 69 QT: 290 QTc: 437 Interpretive Statements Sinus tachycardia nonspecific st segment changes Probable left atrial enlargement Left ventricular hypertrophy Lateral leads are also involved Baseline wander in lead(s) V1 Compared to ECG 02/10/2019 12:18:49 Sinus rhythm no longer present Electronically Signed On 10-02-2020 9:03:33 MLT by Jason Baron [email or web address] <ELECTRONICALLY SIGNED> By: Jason Baron MD, FACC 10/02/20902 32 32 Jason Baron MD, FAC /EPI
[2020-10-02 10:42] LABS: ALBUMIN 1.8 g/dL (3.4-5.0); CALCIUM 8.4 mg/dL (8.5-10.1); CREATININE 0.6 mg/dL (0.6-1.3); POTASSIUM 3.2 mmol/L (3.5-5.1); TOTAL BILIRUBIN 0.9 mg/dL (<0.1-1.0)
--- NOTE | 2020-10-02 11:46 | EKG ---
[place] [address] ELECTROCARDIOGRAM REPORT Name: MEMO HARRISON Room: [address] ADM IN .R.#: [id number] Admission: 10/01/20 Attend Phys: Grazyna Brown, Discharge: Date of : 62 Date of Service: 10/01/20 2236 Report #: [id number] THIS REPORT FOR: //name// [facility] ED Test Date: 2020-10-01 Test Time: 22:36:31 Pat Name: MEMO HARRISON Department: Room: [address] Gender: F Tension Worker: [place] : 1960 Requested By: Negra Tyson Order Number: [id number] Yris MD: Jason Baron Measurements Intervals [place] Rate: 112 P: 46 [place]: 166 QRS: -40 QRSD: 94 T: 58 QT: 347 QTc: 474 Interpretive Statements Sinus tachycardia Probable left atrial enlargement Left ventricular hypertrophy left anterior fasicular block baseline artifact Compared to ECG 10/01/2020 20:33:46 rate has slowed Electronically Signed On 10-02-2020 11:45:55 [employer] by Jason Baron [email or web address] <ELECTRONICALLY SIGNED> By: Jason Baron MD, [facility] 10/02/20 1145 35 35 Jason Baron MD, [facility] /EPI
--- NOTE | 2020-10-02 11:47 | EKG ---
[place] [address] ELECTROCARDIOGRAM REPORT Name: MEMO HARRISON Room: [address] ADM IN M.R.#: [id number] Admission: 10/01/20 Attend Phys: Grazyna Brown, Discharge: Date of : 62 Date of Service: 10/01/20 2244 Report #: [id number] THIS REPORT FOR: //name// [facility] ED Test Date: 2020-10-01 Test Time: 22:44:06 Pat Name: MEMO HARRISON Department: Room: [address] Gender: F Channel Process Supervisor: LORIE : 1960 Requested By: Negra Tyson Order Number: [id number] Reading MD: Jason Baron Measurements Intervals [place] Rate: 109 P: 23 [place]: 165 QRS: -38 QRSD: 96 T: 53 QT: 362 QTc: 488 Interpretive Statements Sinus tachycardia Left ventricular hypertrophy left axis nonspecific st segment changes Compared to ECG 10/01/2020 22:36:31 No significant changes Electronically Signed On 10-02-2020 11:46:52 BROOM WORKER by Jason Baron [email or web address] <ELECTRONICALLY SIGNED> By: Jason Baron MD, FACC 10/02/20 1146 2244 2244 Jason Baron MD, [facility] /EPI
[2020-10-02 15:58] VITALS: BP 129/85
[2020-10-02 20:00] VITALS: BP 127/68
[2020-10-02 22:06] LABS: COMPLEMENT-C4 27 mg/dL (12-38)
[2020-10-03 00:23] VITALS: BP 125/83
[2020-10-03 02:06] LABS: IgA 372 mg/dL (87-352); IgG 2836 mg/dL (586-1602); IgM 95 mg/dL (26-217)
[2020-10-03 02:06] LABS: GLYCOHEMOGLOBIN (HGB A1C) 5.2 % (4.8-5.6)
[2020-10-03 04:17] VITALS: BP 141/70
[2020-10-03 04:37] LABS: ABSOLUTE LYMPHOCYTES 0.9 thou/uL (0.8-5.3); ABSOLUTE MONOCYTES 0.4 thou/uL (0.0-1.2); ABSOLUTE NEUTROPHILS 5.7 thou/uL (1.6-8.1); BASOPHILS 0.1 %; HEMATOCRIT 34.1 % (37.0-47.0); HEMOGLOBIN 11.3 gm/dL (12.0-15.0); LYMPHOCYTES 13.4 %; MCH 27.5 pg (26.0-34.0); MCHC 33.1 g/dL (28.0-37.0); MONOCYTES 5.2 %; MPV 9.2 fl. (7.2-11.1); NUCLEATED RBCS 0 /100WBC; POLYS 81.3 %; RBC 4.11 mil/uL (4.20-5.00); RDW-CV 13.2 % (10.5-14.5); WBC 7.1 thou/uL (4.0-11.0)
[2020-10-03 04:42] LABS: PLATELET COUNT* 215 thou/uL (150-400)
[2020-10-03 05:20] LABS: CALCIUM 8.5 mg/dL (8.5-10.1); CREATININE 0.6 mg/dL (0.6-1.3); POTASSIUM 3.3 mmol/L (3.5-5.1)
[2020-10-03 06:01] LABS: CHOLESTEROL 105 mg/dL (<200); HDL CHOLESTEROL 14 mg/dL (>40); LDL CHOLESTEROL 71 mg/dL (<100); SERUM ASSESSMENT Clear; TC:HDL 7.5 Ratio (Not establshd); TRIGLYCERIDE 101 mg/dL (<150); VLDL 20 mg/dL (<40)
[2020-10-03 08:00] VITALS: BP 139/93
[2020-10-03 11:13] VITALS: BP 130/83
[2020-10-03 12:49] LABS: CALCIUM 9.2 mg/dL (8.5-10.1); CREATININE 0.6 mg/dL (0.6-1.3); POTASSIUM 3.7 mmol/L (3.5-5.1)
[2020-10-03 12:52] LABS: MAGNESIUM 2.6 mg/dL (1.8-2.4); PHOSPHORUS* 2.3 mg/dL (2.5-4.9)
[2020-10-03 13:13] LABS: ANA INTERPRETATION Positive (Negative)
[2020-10-03 19:30] VITALS: BP 134/77
[2020-10-04 00:02] VITALS: BP 138/81
[2020-10-04 04:00] VITALS: BP 130/74
[2020-10-04 07:35] VITALS: BP 139/86
[2020-10-04 12:13] VITALS: BP 142/80
[2020-10-04 15:04] VITALS: BP 151/79
[2020-10-04 20:00] VITALS: BP 135/66
[2020-10-04 21:05] LABS: GLOBULIN TOTAL 5.4 g/dL (2.2-3.9); M-SPIKE Not Observed g/dL (Not Observed)
[2020-10-05] VITALS: BP 160/84
[2020-10-05 04:00] VITALS: BP 151/82
[2020-10-05 04:34] LABS: ABSOLUTE LYMPHOCYTES 0.6 thou/uL (0.8-5.3); ABSOLUTE MONOCYTES 0.4 thou/uL (0.0-1.2); ABSOLUTE NEUTROPHILS 4.7 thou/uL (1.6-8.1); BASOPHILS 0.1 %; EOSINOPHILS 0.2 %; HEMATOCRIT 33.1 % (37.0-47.0); HEMOGLOBIN 10.7 gm/dL (12.0-15.0); MCH 27.2 pg (26.0-34.0); MCHC 32.4 g/dL (28.0-37.0); MCV 84.1 fL (80.0-100.0); MONOCYTES 6.3 %; MPV 8.7 fl. (7.2-11.1); NUCLEATED RBCS 0 /100WBC; PLATELET COUNT* 272 thou/uL (150-400); POLYS 82.4 %; RBC 3.94 mil/uL (4.20-5.00); RDW-CV 13.2 % (10.5-14.5); WBC 5.7 thou/uL (4.0-11.0)
[2020-10-05 05:03] LABS: ALBUMIN 1.8 g/dL (3.4-5.0); CALCIUM 8.1 mg/dL (8.5-10.1); CREATININE 0.6 mg/dL (0.6-1.3); POTASSIUM 4.1 mmol/L (3.5-5.1); TOTAL BILIRUBIN 0.2 mg/dL (<0.1-1.0); TOTAL PROTEIN 7.2 g/dL (6.4-8.2)
[2020-10-05 08:30] VITALS: BP 139/76
[2020-10-05 11:00] VITALS: BP 163/82
--- NOTE | 2020-10-05 16:36 | 2DMMODE ---
[place] [address] 2 D/M-MODE ECHOCARDIOGRAM Name: MEMO HARRISON Room: [address] IN [facility]#: [id number] Admission: 10/01/20 Attend Phys: Grazyna Brown, Discharge: Date of : 62 Date of Service: 10/05/20 1635 Report #: [id number] THIS REPORT FOR: cc: Andria Pena MD, Lin W. MD Liston, Michael J. MD [facility] ~ APPROVED REPORT Study performed: 10/05/2020 15:29:21 EXAM: Comprehensive 2D, Doppler, and color-flow Echocardiogram Patient Location: In-Patient Room #: [facility] Status: routine BSA: 1.80 HR: 72 bpm BP: 163/82 mmHg Rhythm: NSR Other Information Study Quality: Good Indications CVA/TIA Echo Enhancing Agent Indication: Rule out Shunt Agent(s) / Amount(s) Used: Agitated Saline 10 cc 2D Dimensions IVSd: 11.25 (7-11mm) LVOT Diam: 23.18 (18-24mm) LVDd: 51.16 mm PWd: 10.21 (7-11mm) Ascending Ao: 31.06 (22-36mm) LVDs: 25.65 (25-40mm) Aortic Root: 32.02 mm Volumes Left Atrial Volume (Systole) LA ESV Index: 33.40 mL/m2 Aortic Valve AoV Peak Jamal.: 1.61 m/s AO Peak Gr.: 10.41 mmHg LVOT Max P.93 mmHg AO Mean Gr.: 5.00 mmHg LVOT Mean P.63 [place] [address] 2 D/M-MODE ECHOCARDIOGRAM Name: MEMO HARRISON Room: [address] IN .R.#: [id number] Admission: 10/01/20 Attend Phys: Grazyna Brown, Discharge: Date of : 62 Date of Service: 10/05/20 1635 Report #: [id number] LVOT Max V: 1.49 m/s AO V2 VTI: 27.77 cm LVOT Mean V: 0.86 m/s SLY (VTI): 4.07 cm2 LVOT V1 VTI: 26.81 cm Mitral Valve E/A Ratio: 1.30 MV Decel. Time: 186.47 ms MV E Max Jamal.: 0.89 m/s MV PHT: 54.08 ms MVA (PHT): 4.07 cm2 TDI E/Lateral E': 5.93 E/Medial E': 9.89 Medial E' Jamal.: 0.09 m/s Lateral E' Jamal.: 0.15 m/s Pulmonary Valve PV Peak Jamal.: 0.97 m/s PV Peak Gr.: 3.80 mmHg Tricuspid Valve RAP Estimate: 5.00 mmHg TR Peak Gr.: 17.61 mmHg RVSP: 22.00 mmHg PA Pressure: 22.00 mmHg Left Ventricle The left ventricle is normal size. There is normal LV segmental wall motion. There is normal left ventricular wall thickness. Left ventricular systolic function is normal. LVEF is 65-70%. The left ventricular diastolic function is normal. Right Ventricle The right ventricle is normal size. The right ventricular systolic function is normal. Atria The left atrium size is normal. Injection of bubbles documented an interatrial shunt consistent with PFO. The right atrium size is normal. Aortic Valve The aortic valve is normal in structure. No aortic regurgitation is present. There is no aortic valvular stenosis. Mitral Valve The mitral valve is normal in structure. Mild mitral regurgitation. No evidence [place] [address] 2 D/M-MODE ECHOCARDIOGRAM Name: MEMO HARRISON Gómez Room: [address] IN [facility]#: [id number] Admission: 10/01/20 Attend Phys: Grazyna Brown, Discharge: Date of : 62 Date of Service: 10/05/20 1635 Report #: [id number] Tricuspid Valve The tricuspid valve is normal in structure. Mild tricuspid regurgitation. No pulmonary hypertension. Pulmonic Valve The pulmonary valve is normal in structure. There is no pulmonic valvular regurgitation. Great Vessels The aortic root is normal in size. IVC is normal in size and collapses >50% with inspiration. Pericardium There is no pericardial effusion. <Conclusion> The left ventricle is normal size. There is normal left ventricular wall thickness. Left ventricular systolic function is normal. LVEF is 65-70%. The left ventricular diastolic function is normal. Injection of bubbles documented an interatrial shunt consistent with PFO. Mild mitral regurgitation. Mild tricuspid regurgitation. No pulmonary hypertension. IVC is normal in size and collapses >50% with inspiration. <ELECTRONICALLY SIGNED> By: Rm Rouse MD, FACC 10/05/20 1635 1635 1635 Rm Rouse MD, FACC /INF
--- NOTE | 2020-10-05 16:40 | EKG ---
[place] [address] ELECTROCARDIOGRAM REPORT Name: CHRISTYMEMO Room: [address] ADM IN M.R.#: [id number] Admission: 10/01/20 Attend Phys: Grazyna Brown, Discharge: Date of : 62 Date of Service: 10/05/20 0441 Report #: [id number] THIS REPORT FOR: //name// [facility] Test Date: 2020-10-05 Test Time: 04:41:12 Pat Name: MEMO HARRISON Department: Room: [address] Gender: F Administrative Support Assistant: ANWANKWO : 1960 Requested By: Grazyna Brown Order Number: [id number] Yris MD: Ayad Johnston Measurements Intervals [place] Rate: 73 P: 48 [place]: 163 QRS: -24 QRSD: 101 T: 4 QT: 408 QTc: 450 Interpretive Statements Sinus rhythm Minimal ST elevation high lateral leads Compared to ECG 10/01/2020 22:44:06 ST (T wave) deviation now present Sinus tachycardia no longer present Electronically Signed On 10-05-2020 16:40:33 MEDICAL INSURANCE CLAIMS SPECIALIST by Ayad Johnston [email or web address] <ELECTRONICALLY SIGNED> By: Ayad Johnston MD, FACC 10/05/20 1640 044 044 Ayad Johnston MD, FACC /EPI
[2020-10-05 20:10] VITALS: BP 167/85
[2020-10-05 23:59] VITALS: BP 149/78
[2020-10-06 05:16] VITALS: BP 147/86
[2020-10-06 08:00] VITALS: BP 168/86
[2020-10-06 09:22] LABS: HEMOGLOBIN 10.4 gm/dL (12.0-15.0); MCH 27.2 pg (26.0-34.0); MCHC 32.4 g/dL (28.0-37.0); NUCLEATED RBCS 0 /100WBC; PLATELET COUNT* 261 thou/uL (150-400); RBC 3.82 mil/uL (4.20-5.00); RDW-CV 13.4 % (10.5-14.5); WBC 6.4 thou/uL (4.0-11.0)
[2020-10-06 09:33] LABS: ALBUMIN 1.9 g/dL (3.4-5.0); CALCIUM 8.2 mg/dL (8.5-10.1); CREATININE 0.6 mg/dL (0.6-1.3); POTASSIUM 4.3 mmol/L (3.5-5.1); TOTAL BILIRUBIN 0.2 mg/dL (<0.1-1.0); TOTAL PROTEIN 7.2 g/dL (6.4-8.2)
[2020-10-06 10:25] LABS: ABSOLUTE BASOPHILS 0.1 thou/uL (0.0-0.2); ABSOLUTE EOSINOPHILS 0.1 thou/uL (0.0-0.7); ABSOLUTE LYMPHOCYTES 0.8 thou/uL (0.8-5.3); ABSOLUTE MONOCYTES 0.3 thou/uL (0.0-1.2); ABSOLUTE NEUTROPHILS 5.1 thou/uL (1.6-8.1); METAMYELOCYTES 3 %; PLATELET ESTIMATE ADEQUATE
[2020-10-06 11:30] VITALS: BP 161/85
[2020-10-06 17:00] VITALS: BP 164/83
[2020-10-07 00:11] VITALS: BP 150/71
[2020-10-07 05:22] VITALS: BP 163/94
[2020-10-07 05:35] LABS: ABSOLUTE LYMPHOCYTES 0.8 thou/uL (0.8-5.3); ABSOLUTE MONOCYTES 0.4 thou/uL (0.0-1.2); ABSOLUTE NEUTROPHILS 6.8 thou/uL (1.6-8.1); BASOPHILS 0.1 %; EOSINOPHILS 0.2 %; HEMATOCRIT 35.3 % (37.0-47.0); HEMOGLOBIN 11.5 gm/dL (12.0-15.0); MCH 27.3 pg (26.0-34.0); MCHC 32.5 g/dL (28.0-37.0); MCV 84.1 fL (80.0-100.0); MONOCYTES 5.1 %; MPV 8.8 fl. (7.2-11.1); NUCLEATED RBCS 0 /100WBC; PLATELET COUNT* 260 thou/uL (150-400); POLYS 84.6 %; RDW-CV 13.5 % (10.5-14.5)
[2020-10-07 06:30] LABS: CALCIUM 8.6 mg/dL (8.5-10.1); CREATININE 0.6 mg/dL (0.6-1.3); POTASSIUM 4.4 mmol/L (3.5-5.1); TOTAL BILIRUBIN 0.2 mg/dL (<0.1-1.0); TOTAL PROTEIN 7.6 g/dL (6.4-8.2)
[2020-10-07 06:35] LABS: PREALBUMIN 17.9 mg/dL (18.0-35.7)
[2020-10-07 08:00] VITALS: BP 168/84
[2020-10-07 12:00] VITALS: BP 150/75
[2020-10-07 16:00] VITALS: BP 143/77
[2020-10-07 20:00] VITALS: BP 150/75
[2020-10-08] VITALS (7 sets, daily range): BP systolic 143–177; BP diastolic 72–87
[2020-10-08 05:44] LABS: ABSOLUTE LYMPHOCYTES 0.6 thou/uL (0.8-5.3); ABSOLUTE MONOCYTES 0.4 thou/uL (0.0-1.2); ABSOLUTE NEUTROPHILS 7.1 thou/uL (1.6-8.1); EOSINOPHILS 0.1 %; HEMATOCRIT 34.1 % (37.0-47.0); LYMPHOCYTES 7.5 %; MCH 27.2 pg (26.0-34.0); MCHC 32.1 g/dL (28.0-37.0); MCV 84.8 fL (80.0-100.0); MONOCYTES 4.7 %; MPV 9.2 fl. (7.2-11.1); NUCLEATED RBCS 0 /100WBC; PLATELET COUNT* 259 thou/uL (150-400); POLYS 87.7 %; RBC 4.02 mil/uL (4.20-5.00); RDW-CV 13.6 % (10.5-14.5); WBC 8.1 thou/uL (4.0-11.0)
[2020-10-08 05:59] LABS: ALBUMIN 2.1 g/dL (3.4-5.0); CALCIUM 8.6 mg/dL (8.5-10.1); CREATININE 0.5 mg/dL (0.6-1.3); POTASSIUM 4.4 mmol/L (3.5-5.1); TOTAL BILIRUBIN 0.2 mg/dL (<0.1-1.0); TOTAL PROTEIN 7.6 g/dL (6.4-8.2)
[2020-10-08 06:19] LABS: PREALBUMIN 21.5 mg/dL (18.0-35.7)
[2020-10-09] VITALS (9 sets, daily range): BP systolic 104–167; BP diastolic 64–89
[2020-10-09] MEDS ORDERED: PREDNISONE 10 M10 MG PO (09:50)
[2020-10-10 08:00] VITALS: BP 126/59
[2020-10-10 12:30] VITALS: BP 150/66
[2020-10-10 13:55] VITALS: BP 132/69
[2020-10-10 16:00] VITALS: BP 94/46
[2020-10-10] MEDS ORDERED: PREDNISONE10 MG PO (16:56)
[2020-10-10] MEDS ORDERED: PROTONIX40 M2 PO (16:57)
[2020-10-10 18:54] VITALS: BP 132/69
== END 2020-10-10 18:55 | disposition home or self-care (01) | DRG 65 ==
LOC: M.ERS 20:25 → M.TBA-ER 21:42 → M.2W 22:34
PROVIDERS: Emergency Medicine; Internal Medicine; Psychiatry & Neurology Neuromuscular Medicine; ADMIT Internal Medicine; ATTEND Internal Medicine
DX: I63.89 Other cerebral infarction (principal); E87.1 Hypo-osmolality and hyponatremia; R65.10 Systemic inflammatory response syndrome (SIRS) of non-infectious origin without acute organ dysfunction; G95.9 Disease of spinal cord, unspecified; M33.20 Polymyositis, organ involvement unspecified; E11.9 Type 2 diabetes mellitus without complications; I10 Essential (primary) hypertension; E86.0 Dehydration; I73.00 Raynaud's syndrome without gangrene; J10.1 Influenza due to other identified influenza virus with other respiratory manifestations; D89.2 Hypergammaglobulinemia, unspecified; Z20.828 Contact with and (suspected) exposure to other viral communicable diseases; Z90.710 Acquired absence of both cervix and uterus; Z88.8 Allergy status to other drugs, medicaments and biological substances; Z79.84 Long term (current) use of oral hypoglycemic drugs; Z79.899 Other long term (current) drug therapy

== ENCOUNTER 2020-10-11 00:13 | Inpatient (IN) | payer OTHER ==
[~2020-10-11] VITALS: Ht 160 cm; Wt 77.0 kg
[2020-10-11] VITALS (7 sets, daily range): BP systolic 99–137; BP diastolic 53–84
--- NOTE | ~2020-10-11 | CON ---
[facility] [address] [place] [address] CONSULTATION Name: MEMO HARRISON Room: [address] ADM IN M.R.#: [id number] Admission: 10/11/20 Attend Phys: Melvin Antunez MD Discharge: Date of : 62 Report #: [id number] THIS REPORT FOR: cc: Andria Pena MD, Lin W. MD ~ Alec Larsen MD DATE OF SERVICE: 10/11/2020 HISTORY OF PRESENT ILLNESS: This is a 60-year-old female patient who was recently seen by me. As my prior notes indicate, I very clearly told this patient that this is not the hospital for her. The reasons are summarized in my notes. I reviewed Dr. Fu's admission history and physical. We have not been able to transfer this patient. She is aware of it. I have very clearly told her that if she ever needs anymore care, she should not come to this hospital and go to some other hospital. She went home and she said she was feeling still weak and she came to the hospital. I asked her why did she come to the hospital in spite of the fact that we are telling her repeatedly that this is not the hospital for you. She said she did not want to come, but her father made her come to this hospital. The other problem is that the patient is also very reluctant to do many procedures here and she has declined many things. She has declined LP for me, which I had recommended and today, I talked to her that we can proceed with CT angio, and she wants to think about that. REVIEW OF SYSTEMS: Indicate that she does have some collagen vascular disorder. She follows up with a urinalysis technician and I do not know what collagen vascular disorder she has, but she has increased sed rate, and DEB is positive. She was admitted with influenza and when I saw her today, she was on precautions for COVID because the test has not come back yet. A 14-point review of system has been discussed in the past. PAST MEDICAL HISTORY: Positive for some collagen vascular disorder. She also has a history of diabetes. She did have stroke and influenza last time. FAMILY HISTORY: Unremarkable. SOCIAL HISTORY: She says she does not drink alcohol. PHYSICAL EXAMINATION: The patient's examination was pretty much the same as it was the last time. She was conscious, alert and responsive. She was not complaining of eye symptom, but neuromuscular examination is exactly same as I summarized in my note, there was no difference[place] [address] CONSULTATION Name: MEMO HARRISON Room: [address] IN [facility]#: [id number] Admission: 10/11/20 Attend Phys: Melvin Antunez MD Discharge: Date of : 62 Report #: [id number] is unremarkable. IMPRESSION: As summarized above, I have told the patient this is not the hospital for her and she still came to this hospital. The only other thing I can do is do an MRI of the thoracic spine since MRI of the cervical spine has shown abnormality and an LP. She declined both of them, but she said she will think about the MRI of the thoracic spine and we will see if they even approve that because administration has to approve that MRI in this hospital. Thank you very much for this referral and if you have any questions, please feel free to contact me. By: 09 14Alec Larsen MD /nt
[~2020-10-11 00:13] MED LIST changes: +NEURONTIN 300M300 M2 PO; +PREDNISONE10 MG PO; +PROTONIX40 M2 PO
[2020-10-11 01:09] LABS: ABSOLUTE EOSINOPHILS 0.2 thou/uL (0.0-0.7); ABSOLUTE NEUTROPHILS 7.7 thou/uL (1.6-8.1); BASOPHILS 0.1 %; EOSINOPHILS 2.1 %; HEMATOCRIT 39.8 % (37.0-47.0); HEMOGLOBIN 12.9 gm/dL (12.0-15.0); LYMPHOCYTES 9.8 %; MCH 27.9 pg (26.0-34.0); MCHC 32.4 g/dL (28.0-37.0); MCV 86.2 fL (80.0-100.0); MPV 8.6 fl. (7.2-11.1); NUCLEATED RBCS 0 /100WBC; PLATELET COUNT* 247 thou/uL (150-400); RBC 4.61 mil/uL (4.20-5.00); RDW-CV 14.4 % (10.5-14.5); WBC 9.9 thou/uL (4.0-11.0)
[2020-10-11 01:16] LABS: BE 3.8 mmol/L (-2 to +3); PCO2 32.8 mmHg (35.0-45.0); PO2 82.3 mmHg (75.0-100.0); pH 7.522 (7.340-7.450)
[2020-10-11 01:17] LABS: CALCIUM 8.3 mg/dL (8.5-10.1); CREATININE 0.8 mg/dL (0.6-1.3); POTASSIUM 3.8 mmol/L (3.5-5.1)
[2020-10-11 01:25] LABS: INFLUENZA A ANTIGEN Negative (Negative); INFLUENZA B ANTIGEN Negative (Negative)
[2020-10-11 01:31] LABS: ALBUMIN 2.4 g/dL (3.4-5.0); TOTAL BILIRUBIN 0.9 mg/dL (<0.1-1.0); TOTAL PROTEIN 7.8 g/dL (6.4-8.2)
[2020-10-11 02:09] LABS: URINE BILIRUBIN NEGATIVE (Negative); URINE BLOOD NEGATIVE (Negative); URINE CLARITY CLEAR; URINE COLOR YELLOW; URINE GLUCOSE-RANDOM NEGATIVE (Negative); URINE KETONES NEGATIVE (Negative); URINE LEUKOCYTES-REFLEX NEGATIVE (Negative); URINE NITRITE-REFLEX NEGATIVE (Negative); URINE PROTEIN NEGATIVE (Negative); URINE SPECIFIC GRAVITY 1.015 (1.005-1.030)
[2020-10-11 03:06] LABS: CK-MB MASS 0.5 ng/mL (<0.5-3.6)
--- NOTE | 2020-10-11 17:10 | EKG ---
[place] [address] ELECTROCARDIOGRAM REPORT Name: MEMO HARRISON Room: [address] ADM IN M.R.#: [id number] Admission: 10/11/20 Attend Phys: Melvin Antunez, Discharge: Date of : 62 Date of Service: 10/11/20 0022 Report #: [id number] THIS REPORT FOR: //name// [facility] ED Test Date: 2020-10-11 Test Time: 00:22:20 Pat Name: MEMO HARRISON Department: Room: [address] Gender: F Kindergarten Instructional Assistant: [place] : 1960 Requested By: Melvin Antunez Order Number: [id number] Reading MD: Jason Baron Measurements Intervals [place] Rate: 92 P: 54 [place]: 133 QRS: -47 QRSD: 88 T: 48 QT: 342 QTc: 424 Interpretive Statements Sinus rhythm Atrial premature complexes Probable left atrial enlargement Left anterior fascicular block Abnormal R-wave progression, late transition Left ventricular hypertrophy Compared to ECG 10/05/2020 04:41:12 Atrial premature complex(es) now present Electronically Signed On 10-11-2020 17:10:24 POCKET SETTER LOCKSTITCH by Jason Baron [email or web address] <ELECTRONICALLY SIGNED> By: Jason Baron MD, [facility] 10/11/20 1710 002 Jason Baron MD, [facility] /EPI
[2020-10-12 00:20] VITALS: BP 130/79
[2020-10-12 00:22] VITALS: BP 130/79
[2020-10-12 05:18] VITALS: BP 128/67
[2020-10-12 05:26] LABS: CALCIUM 8.7 mg/dL (8.5-10.1); CREATININE 0.6 mg/dL (0.6-1.3); POTASSIUM 4.3 mmol/L (3.5-5.1)
[2020-10-12 05:28] LABS: MCH 27.5 pg (26.0-34.0); NUCLEATED RBCS 0 /100WBC; RDW-CV 13.9 % (10.5-14.5)
[2020-10-12 05:30] LABS: HEMATOCRIT 33.6 % (37.0-47.0); MCHC 32.2 g/dL (28.0-37.0); MCV 85.4 fL (80.0-100.0); PLATELET COUNT* 200 thou/uL (150-400); RBC 3.93 mil/uL (4.20-5.00); WBC 8.5 thou/uL (4.0-11.0)
[2020-10-12 05:32] LABS: HEMOGLOBIN 10.8 gm/dL (12.0-15.0)
[2020-10-12 06:17] LABS: ABSOLUTE LYMPHOCYTES 0.7 thou/uL (0.8-5.3); ABSOLUTE MONOCYTES 1.3 thou/uL (0.0-1.2); ABSOLUTE NEUTROPHILS 6.5 thou/uL (1.6-8.1); PLATELET ESTIMATE ADEQUATE
[2020-10-12 06:18] LABS: ANISOCYTOSIS 1+; POIKILOCYTOSIS 1+
[2020-10-12 08:00] VITALS: BP 147/77
[2020-10-12 11:30] VITALS: BP 115/56
== END 2020-10-12 17:00 | disposition short-term general hospital (02) | DRG 547 ==
LOC: M.ERS 00:13 → M.TBA-ER 02:40 → M.2W 04:11
PROVIDERS: Internal Medicine; Personal Emergency Response Attendant; ADMIT Internal Medicine; ATTEND Internal Medicine
DX: M33.20 Polymyositis, organ involvement unspecified (principal); E11.9 Type 2 diabetes mellitus without complications; I10 Essential (primary) hypertension; M32.9 Systemic lupus erythematosus, unspecified; Z20.828 Contact with and (suspected) exposure to other viral communicable diseases; Z90.710 Acquired absence of both cervix and uterus; Z91.02 Food additives allergy status; Z79.899 Other long term (current) drug therapy